=== PATIENT | female | born 1975 | race Two or more races ===

== ENCOUNTER 2022-01-05 10:02 | Emergency (ER) | payer MEDICAID, OTHER ==
[~2022-01-05] VITALS: Ht 160 cm; Wt 81.8 kg
[2022-01-05 10:18] VITALS: BP 139/91
[2022-01-05] MEDS ORDERED: KETOROLAC TROMETH 60MG/2ML VIAL IM ONE (10:30)
[2022-01-05] MEDS ORDERED: PRED20TA2 PO (11:04)
[2022-01-05] MEDS ORDERED: TRAM-297 PO (11:04)
== END 2022-01-05 11:07 | disposition home or self-care (01) ==
LOC: EDBD 10:02 → ER 10:02
DX: S29.012A Strain of muscle and tendon of back wall of thorax, initial encounter (principal); M51.34 Other intervertebral disc degeneration, thoracic region; Z79.899 Other long term (current) drug therapy; X58.XXXA Exposure to other specified factors, initial encounter; Y93.89 Activity, other specified; Y92.89 Other specified places as the place of occurrence of the external cause; Y99.8 Other external cause status
CPT/HCPCS: 72070; 96372; 99283; J1885